=== PATIENT | male | born 1995 | race African-American/Black ===

== ENCOUNTER 2016-12-25 14:33 | Emergency (ER) | payer OTHER ==
[2016-12-25 16:33] VITALS: BP 102/54
--- NOTE | 2016-12-25 17:10 | UC ---
FLU HPI - HPI Summary HPI Summary: 21 male presents with complaints of cough, chest congestion, sore throat, chest discomfort with coughing, body aches, and headache. Patient states he had fever/ chills with worsening symptoms -Monday. Since then his symptoms have been improving except the chest congestion, sore throat and cough. He does still have a mild cough and headache still. He has been taking dayquil and ibuprofen with little relief. Only took Dayquil today with last dose being this morning. Also admits to an episode of diarrhea. States is cough is productive with green to yellow sputum. Denies sinus pressure, nausea and vomiting. Did not have the influenza shot this year. Denies radiation of pain and SOB/ difficulty breathing and cardiac chest pain. Has been drinking fluids. - History of Current Complaint Chief Complaint: UCGeneralIllness Stated Complaint: COUGH/CONGESTION/HEADACHE Time Seen by Provider: 12/25/16 16:38 Hx Obtained From: Patient Onset/Duration: Sudden Onset, Lasting Days, Still Present, Resolved Severity Currently: Mild Severity Initially: Severe Pain Intensity: 6 Pain Scale Used: 0-10 Numeric Associated Signs & Symptoms: Positive: Fever, Myalgia, Cough, Sore Throat, Nasal Congestion, Headache, Diarrhea - Allergy/Home Medications Allergies/Adverse Reactions: Allergies Allergy/AdvReac Type Severity Reaction Status Date / Time No Known Allergies Allergy Verified 12/25/16 16:24 Home Medications: Home Medications Dextromethorphan-Phenylephrine [Vicks Dayquil Cold & Flu] 1 cap PO Q6H PRN 12/25 [History Confirmed 12/25/16] Ibuprofen TAB* [Advil TAB*] 400 mg PO Q6H PRN 12/25/16 [History Confirmed ] PMH/Surg Hx/FS Hx/Imm Hx Cardiovascular History Of: Denies: Cardiac Disorders, Hypertension Respiratory History Of: Denies: Asthma GI/ History Of: Denies: Gastroesophageal Reflux - Surgical History Surgical History: None - Family History Known Family History: Positive: None - Social History Alcohol Use: None Substance Use Type: None Smoking Status (MU): Never Smoked Tobacco - Immunization History Vaccination Up to Date: Yes Review of Systems Constitutional: Fever, Chills Skin: Negative Eyes: Negative ENT: Sore Throat, Ear Ache, Nasal Discharge Respiratory: Cough Cardiovascular: Negative Gastrointestinal: Diarrhea Genitourinary: Negative Motor: Negative Neurovascular: Negative Musculoskeletal: Myalgia Neurological: Headache All Other Systems Reviewed And Are Negative: Yes Physical Exam Triage Information Reviewed: Yes Appearance: No Pain Distress, Well-Nourished, Ill-Appearing Vital Signs: Initial Vital Signs Temp 98.7 F 12/25/16 16:26 Pulse 77 12/25/16 16:26 Resp 16 12/25/16 16:26 BP 102/54 12/25/16 16:26 Pulse Ox 97 12/25/16 16:26 Vital Signs Reviewed: Yes Eyes: Positive: Conjunctiva Clear ENT: Positive: Normal ENT inspection, Hearing grossly normal, Pharyngeal erythema, Nasal congestion, Nasal drainage, TMs normal. Negative: Tonsillar swelling, Tonsillar exudate, Trismus, Muffled/hoarse voice Dental: Negative: Percussion Tenderness @, Cervical Lymphadenopathy Neck: Positive: Supple, Nontender, No Lymphadenopathy Respiratory Exam: Normal Respiratory: Positive: Chest non-tender, Lungs clear, No respiratory distress, No accessory muscle use, Decreased breath sounds - throughout, however difficult to have patient take deep breaths as it would make him cough and caused increasing discomfort.. Negative: Respiratory distress, Accessory muscle use, Crackles, Rhonchi, Stridor, Wheezing Cardiovascular Exam: Normal Cardiovascular: Positive: RRR, No Murmur, Pulses Normal, Brisk Capillary Refill Abdominal Exam: Normal Abdomen Description: Positive: Nontender, No Organomegaly, Soft Bowel Sounds: Positive: Present Musculoskeletal Exam: Normal Musculoskeletal: Positive: Strength Intact, ROM Intact, No Edema Neurological Exam: Normal - neuro exam normal. cranial nerves intact. sensation and strength intact. Neurological: Positive: Alert Psychological Exam: Normal Skin Exam: Normal Diagnostics - Radiology chest x-ray Xray Interpretation: Positive (See Comments) - There is a faint patchy infiltrate present in the right upper lobe suspicious for pneumonia. Radiology Interpretation Completed By: Radiologist Re-Evaluation - Re-Evaluation First Eval Re-Evaluation Time: 17:45 Change: Improved - felt some relief after duo neb Flu Course/Dx - Course Course Of Treatment: due to patients current presentation a chest x-ray was ordered to rule out pneumonia as he is a college student with productive cough, recent fever and 97% O2 sat. It showed a small patchy infiltrate in upper lobe, suscpicous for pneumonia. Influenza culture obtained and positive. will treat with antibiotics and short course of steroids. Given duoneb first dose of antibiotic and prednisone while in office. aware of worsening signs and symptoms to watch out for. follow up. drink plenty of fluids and get plenty of rest. also suggest flonase and chloraseptic spray if he wanted symptom relief over the counter for congestion and sore throat. appears he had a secondary infection of pneumonia along with the influenza B. - Differential Dx/Diagnosis Differential Diagnosis/HQI/PQRI: Bronchitis, Influenza, Pneumonia, RSV, Upper Respiratory Infection Provider Diagnoses: Influenza B, secondary pneumonia infection Discharge - Discharge Plan Condition: Stable Disposition: HOME Prescriptions: Albuterol HFA INHALER* [Ventolin HFA Inhaler*] 1 puff INH Q4H PRN #1 mdi PRN Reason: Wheezing Azithromycin TAB* [Zithromax TAB (Z-NORTH) 250 mg #6 tabs] 250 mg PO DAILY #4 tab Benzonatate CAP* [Tessalon 100 MG CAP*] 100 mg PO TID PRN #20 cap PRN Reason: Cough predniSONE TAB* [Deltasone TAB*] 20 mg PO DAILY #2 tab Patient Education Materials: Influenza (ED), Community Acquired Pneumonia (ED) Forms: *Gen. Provider Communication, *School Release Referrals: Non Staff,Doctor [Primary Care Provider] - Additional Instructions: Take prescribed medications as directed until entire dose is finished, even if symptoms improve. Take Tessalon pearls at night time to help with cough so you are able to sleep. Use prescribed inhaler for shortness of breath/ wheezing. Drink plenty of fluids and get plenty of rest. Cold air my exacerbate your symptoms. Refrain from strenuous physical activity until symptoms improve. If symptoms do not improve and/or worsen please seek medical attention promptly. Wash hands frequently and be sure to cover your mouth when coughing it is very contagious.
[2016-12-25] MEDS ORDERED: Albuterol/Ipratropium NEB.SOL* Albuterol 2.5 MG/Ipratropium 0.5 MG 3 ML INH ONE (17:21)
--- NOTE | 2016-12-25 17:25 | RAD ---
INDICATION: Cough and chest pain. COMPARISON: There are no prior studies available for comparison. TECHNIQUE: Dual-energy PA and lateral views of the chest were obtained. FINDINGS: The heart is within normal limits in size. Mediastinal and hilar contours appear within normal limits. There is a faint patchy infiltrate present in the right upper lobe suspicious for pneumonia. The lungs are otherwise clear. No pleural effusion is seen. IMPRESSION: SMALL RIGHT UPPER LOBE INFILTRATE.
[2016-12-25] MEDS ORDERED: predniSONE TAB* 20 MG PO ONE (17:38)
[2016-12-25] MEDS ORDERED: Azithromycin TAB* 250 MG PO ONE (17:39)
== END 2016-12-25 18:11 | disposition home or self-care (01) ==
LOC: UCCORT 14:33
DX: J11.00 Influenza due to unidentified influenza virus with unspecified type of pneumonia (principal)
CPT/HCPCS: 71020; 87502; 99213; A9270-GY; G0463; J7512